=== PATIENT | female | born 2000 | race Caucasian/White ===

== ENCOUNTER 2021-10-09 09:29 | Emergency (ER) | payer OTHER ==
[2021-10-09] MEDS ORDERED: NAPROXEN500 MG PO ×2 (14:19→14:22)
[2021-10-09] MEDS ORDERED: BACLOFEN 10MG T10 MG PO ×2 (14:19→14:22)
== END 2021-10-09 14:59 | disposition home or self-care (01) ==
LOC: FER 09:29
DX: M54.2 Cervicalgia (principal); R51.9 Headache, unspecified; V49.40XA Driver injured in collision with unspecified motor vehicles in traffic accident, initial encounter
CPT/HCPCS: 70450; 72125; 96372; J1100; J1885